=== PATIENT | female | born 2000 | race Caucasian/White ===

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

== ENCOUNTER 2019-06-09 14:32 | Emergency (ER) | payer BC ==
[2019-06-09 14:46] VITALS: BP 120/75
--- NOTE | 2019-06-09 14:58 | ED ---
Throat Pain/Nasal Congestion - HPI Summary HPI Summary: 19 yr old female with the complaint of runny nose, nasal congestion, mild sinus pressure. She has been ill for three days. She has no fever, chills. No stridor. No drooling. No change in voice. The patient has been having sinus pressure that is mild. No post nasal drip. No coughing. She has no history of sinus infections. She has had a tonsillectomy last year. - History of Current Complaint Chief Complaint: UCGeneralIllness Time Seen by Provider: 06/09/19 14:49 - Allergies/Home Medications Allergies/Adverse Reactions: Allergies Allergy/AdvReac Type Severity Reaction Status Date / Time No Known Allergies Allergy Verified 06/09/19 14:47 Home Medications: Home Medications Amoxicillin PO (*) [Amoxicillin 500 MG CAP*] 1 cap PO ONCE 06/09/19 [History Confirmed 06/09/19] D-Methorphan/PE/Acetaminophen [Daytime Cold Multi-Symp Gelcap] 1 each PO ONCE [History Confirmed 06/09/19] Norethindrone-E.estradiol-Iron [Junel Fe 24 1-20 mg-Mcg(24)] 1 tab PO DAILY 04/20 [History Confirmed 06/09/19] PMH/Surg Hx/FS Hx/Imm Hx - Surgical History Surgery Procedure, Year, and Place: appendectomy. t&a Infectious Disease History: No Infectious Disease History: Denies: Traveled Outside the [place] in Last 30 Days - Family History Known Family History: Positive: Other - no related illnesses in the family. - Social History Occupation: Student Alcohol Use: Occasionally Alcohol Amount: 2 Substance Use Type: Reports: None Smoking Status (MU): Never Smoked Tobacco Review of Systems Constitutional: Negative Positive: Sore Throat, Nasal Discharge. Negative: Ear Ache Negative: Cough All Other Systems Reviewed And Are Negative: Yes Physical Exam Triage Information Reviewed: Yes Vital Signs On Initial Exam: Initial Vitals Temp Pulse Resp BP Pulse Ox 98.6 F 90 18 120/75 100 06/09/19 14:42 06/09/19 14:42 06/09/19 14:42 06/09/19 14:42 06/09/19 14:42 Vital Signs Reviewed: Yes Appearance: Positive: Well-Appearing, No Pain Distress Skin: Positive: Warm, Skin Color Reflects Adequate Perfusion Head/Face: Positive: Normal Head/Face Inspection Eyes: Positive: EOMI ENT: Positive: Normal ENT inspection, Nasal congestion, TMs normal. Negative: Pharyngeal erythema, Sinus tenderness Neck: Positive: Nontender Respiratory/Lung Sounds: Positive: Clear to Auscultation, Breath Sounds Present Cardiovascular: Positive: RRR. Negative: Murmur Abdomen Description: Negative: Distended Musculoskeletal: Positive: Strength/ROM Intact Neurological: Positive: Sensory/Motor Intact, Alert, Oriented to Person Place, Time, CN Intact II-III, Normal Gait, Speech Normal Psychiatric: Positive: Normal Diagnostics - Vital Signs Vital Signs Temp Pulse Resp BP Pulse Ox 06/09/19 14:42 98.6 F 90 18 120/75 100 - Laboratory Lab Statement: Any lab studies that have been ordered have been reviewed, and results considered in the medical decision making process. EENT Course/Dx - Course Course Of Treatment: 19 yr old with URI. DC home. - Diagnoses Provider Diagnoses: Upper respiratory infection Discharge ED - Sign-Out/Discharge Documenting (check all that apply): Patient Departure All imaging exams completed and their final reports reviewed: No Studies - Discharge Plan Condition: Good Disposition: HOME Patient Education Materials: Upper Respiratory Infection (ED) Referrals: No Primary Care Phys,NOPCP [Primary Care Provider] - [facility] [place]] [facility] [Outside] - Billing Disposition and Condition Condition: GOOD Disposition: Home
== END 2019-06-09 15:15 | disposition home or self-care (01) ==
LOC: UCCORT 14:32
DX: J06.9 Acute upper respiratory infection, unspecified (principal)
CPT/HCPCS: 99211; G0463

== ENCOUNTER 2019-06-29 20:26 | Emergency (ER) | payer BC ==
--- NOTE | 2019-06-29 20:38 | UC ---
FLU HPI - HPI Summary HPI Summary: Patient is a 19-year-old female presenting with friend for stomach ache, diarrhea, nausea, and body aches since yesterday. Patient notes 8 episodes of diarrhea. Describes stomach aching around umbilicus. No radiating pain. Denies blood in the stool. Denies vomiting. Denies urinary symptoms. Patient notes she has been able to eat toast. No decreased fluid intake. She has taken Tylenol for fever. Patient denies history of GI disorders other than history of stomach viruses in high school. Patient does not have an appendix. - History of Current Complaint Stated Complaint: BODY ACHES,CHILLS, ABD PAIN, NAUSEA Hx Obtained From: Patient Hx Last Menstrual Period: 06/02/19 - Allergy/Home Medications Allergies/Adverse Reactions: Allergies Allergy/AdvReac Type Severity Reaction Status Date / Time No Known Allergies Allergy Verified 06/29/19 20:37 Home Medications: Home Medications Acetaminophen [Tylenol Extra Strength] 1,000 mg PO Q6H PRN 06/29/19 [History Confirmed 06/29/19] PMH/Surg Hx/FS Hx/Imm Hx Previously Healthy: Yes - Surgical History Surgical History: Yes Surgery Procedure, Year, and Place: appendectomy. t&a - Family History Known Family History: Positive: Other - no related illnesses in the family., Non -Contributory - Social History Alcohol Use: Occasionally Alcohol Amount: 2 Substance Use Type: None Smoking Status (MU): Never Smoked Tobacco Review of Systems All Other Systems Reviewed And Are Negative: Yes Constitutional: Positive: Fever, Chills ENT: Positive: Negative Respiratory: Positive: Negative Cardiovascular: Positive: Negative Gastrointestinal: Positive: Abdominal Pain, Diarrhea, Nausea. Negative: Vomiting Genitourinary: Positive: Negative Musculoskeletal: Positive: Myalgia Neurological: Positive: Negative Physical Exam Triage Information Reviewed: Yes Appearance: Well-Appearing, No Pain Distress, Well-Nourished Vital Signs: Laboratory Tests 06/29/19 21:34 Influenza A (Rapid) Negative Influenza B (Rapid) Negative Vital Signs (72 hours) 06/29/19 20:38 Temperature 100.5 F Pulse Rate 125 Respiratory 16 Rate Blood Pressure 124/67 (mmHg) O2 Sat by Pulse 100 Oximetry Vital Signs Reviewed: Yes Eyes: Positive: Conjunctiva Clear ENT: Positive: Hearing grossly normal, Pharynx normal, TMs normal, Uvula midline Neck: Positive: Supple Respiratory Exam: Normal Respiratory: Positive: Lungs clear, Normal breath sounds, No respiratory distress Cardiovascular Exam: Other - regular rhythm Cardiovascular: Positive: Tachycardia Abdomen Description: Positive: Soft. Negative: Nontender - mild tenderness to palpation of umbilicus, CVA Tenderness (R), CVA Tenderness (L), Distended, Guarding, McBurney's Point Tenderness Bowel Sounds: Positive: Present Neurological: Positive: Alert Psychological: Positive: Age Appropriate Behavior Skin Exam: Normal Flu Course/Dx - Course Course Of Treatment: Discussed negative flu test with patient. She received ibuprofen here. Prescribed Zofran for nausea. Instructed to continue symptomatic treatment and to go to ED if symptoms worsen. Patient voiced understanding and agreed with the treatment plan. - Differential Dx/Diagnosis Provider Diagnosis: Acute generalized abdominal pain with fever, Diarrhea Discharge ED - Sign-Out/Discharge Documenting (check all that apply): Patient Departure All imaging exams completed and their final reports reviewed: No Studies - Discharge Plan Condition: Stable Disposition: HOME Prescriptions: Ondansetron ODT TAB* [Zofran 4 MG Odt TAB*] 4 mg PO Q8H PRN #9 tab.odt PRN Reason: Nausea Patient Education Materials: Acute Diarrhea (ED), Abdominal Pain (ED) Forms: *School Release Referrals: [facility] [Outside] - If Needed Additional Instructions: As discussed, take the zofran as prescribed for your nausea. You may continue to take tylenol and ibuprofen as directed for fever and pain relief. Get plenty of rest and fluids. Eat a bland diet, such as bread, bananas, and rice while symptoms are present. Follow up with the [facility] if your symptoms persist. Go to the emergency room if you develop fever higher than 102, excessive diarrhea, severe abdominal pain, blood in the stool, or are unable to keep fluids down. - Billing Disposition and Condition Condition: STABLE Disposition: Home
[2019-06-29 20:42] VITALS: BP 124/67
[2019-06-29 21:48] LABS: Influenza A Molecular NEGATIVE (Negative); Influenza B Molecular NEGATIVE (Negative)
[2019-06-29] MEDS ORDERED: Ibuprofen TAB* 600 MG PO ONE (21:58)
== END 2019-06-29 22:04 | disposition home or self-care (01) ==
LOC: UCCORT 20:26
DX: R19.7 Diarrhea, unspecified (principal); R10.84 Generalized abdominal pain; M79.10 Myalgia, unspecified site; R50.9 Fever, unspecified
CPT/HCPCS: 99212; A9270-GY; G0463